=== PATIENT | female | born 1950 | race Caucasian/White ===

== ENCOUNTER 2020-01-23 22:35 | Inpatient (IN) | payer MEDICARE, OTHER ==
[~2020-01-23] VITALS: Ht 170.2 cm; Wt 70.1 kg
[2020-01-24] VITALS (7 sets, daily range): BP systolic 145–178; BP diastolic 68–92
--- NOTE | 2020-01-24 00:45 | NUR ---
ms terra initial notes Received a direct admit patient from [facility] accompanied by coal inspector . Pt is alert oriented x3 , Denies any pain or any discomfort. Re -oriented where she at . pt stated she just want to sleep because she's been in ER since yesterday afternoon. kept her warm and comfortable at all times. will continue monitoring. place call light at reach.
[2020-01-24] MEDS ORDERED: Z GUARD REMEDY 2 OZ OINT TP PRN (01:30)
[2020-01-24] MEDS ORDERED: MAGNESIUM HYDROXIDE 30 ML UDC PO PRN (01:30)
[2020-01-24] MEDS ORDERED: ONDANSETRON HCL/PF 4 MG/2 ML VIAL IVP PRN (01:30)
[2020-01-24] MEDS ORDERED: MAG HYDROX/AL HYDROX/SIMETH 30 ML UDC PO PRN (01:30)
[2020-01-24] MEDS ORDERED: ACETAMINOPHEN 325 MG TABLET PO PRN (01:30)
--- NOTE | 2020-01-24 07:08 | NUR ---
ms last repairer closing notes pt remains in bed resting with eyes closed but arouse to touch and to her name. She slept well after i admitted. Compression pump for VTE applied to both lower legs per protocol and as ordered. No signs of any discomfort or any distress noted. will endorse to am nurse for continuity of care. place call light at reach.
[2020-01-24 07:28] LABS: BASOPHILS % (AUTO) 0.3 % (0.0-2.0); EOSINOPHILS % (AUTO) 0.2 % (0.0-6.0); HEMATOCRIT 38 % (33-45); HEMOGLOBIN 13.4 g/dL (11.5-14.8); LYMPHOCYTES # (AUTO) 2.5 /CMM (0.8-4.8); LYMPHOCYTES % (AUTO) 25.5 % (20.0-44.0); MEAN CORPUSCULAR HGB CONC 36 g/dl (31.0-36.0); MEAN CORPUSCULAR VOLUME 89 fL (82-100); MONOCYTES # (AUTO) 0.4 /CMM (0.1-1.30); MONOCYTES % (AUTO) 4.5 % (2.0-12.0); NEUTROPHILS # (AUTO) 6.8 /CMM (1.8-8.9); NEUTROPHILS % (AUTO) 69.5 % (43.0-81.0); PLATELET COUNT (AUTO) 215 /CMM (150-450); RED BLOOD CELL COUNT(AUTO) 4.24 MIL/uL (4.0-5.2); WHITE BLOOD COUNT (AUTO) 9.8 K/uL (4.3-11.0)
--- NOTE | 2020-01-24 07:35 | NUR ---
MS RN OPENING NOTES RECEIVED PT IN BED, AWAKE, A/O X2-3, PT ADMITTED SHE'S A LITTLE CONFUSED. RN RE-ORIENTED PT. PT TOLERATING RA, WITH NO ACUTE RESPIRATORY DISTRESS NOTED. PT STATED ABDOMINAL PAIN AND VERBALIZED THAT SHE JUST HAD BM. PT DENIES ANY CONCERNS OR QUESTIONS AT THIS TIME. PIV LFA G22, FLUSHED WITH NS, INTACT AND OPERATIONAL. FC IN PLACE NOTED. PT KEPT COMFORTABLE. CALL LIGHT KEPT WITHIN REACH. PT'S BED IN LOWEST, LOCKED POSITION WITH SR X3. WILL CONTINUE PLAN OF CARE.
[2020-01-24 07:42] LABS: CALCIUM, SERUM 8.6 mg/dL (8.5-10.1); CREATININE 0.6 mg/dL (0.6-1.3)
[2020-01-24 07:47] LABS: POTASSIUM 2.6 mmol/L (3.5-5.1)
[2020-01-24] MEDS: HYDROCODONE/APAP 5/325MG 1 EACH TABLET PO PRN ×2 (09:23→21:25)
[2020-01-24] MEDS ORDERED: LORA-259 PO (10:24)
[2020-01-24] MEDS ORDERED: LEVO50TA8 PO (10:24)
[2020-01-24] MEDS ORDERED: BISA5TAB10 PO (10:24)
[2020-01-24] MEDS ORDERED: OXYB-58 PO (10:24)
[2020-01-24] MEDS ORDERED: MAGN400T26 PO (10:24)
[2020-01-24] MEDS ORDERED: OMEG1CAP40 PO (10:24)
[2020-01-24] MEDS ORDERED: TOPI100T PO (10:24)
[2020-01-24] MEDS ORDERED: CHOL500052 PO (10:24)
[2020-01-24] MEDS ORDERED: NITR1PAT80 TD (10:24)
[2020-01-24] MEDS ORDERED: LOSA50TA39 PO (10:24)
[2020-01-24] MEDS ORDERED: SERT50TA12 PO (10:24)
[2020-01-24] MEDS ORDERED: BUDE10.2 IH (10:24)
[2020-01-24] MEDS ORDERED: METH10TA2 PO (10:24)
[2020-01-24] MEDS ORDERED: ATOR10TA PO (10:24)
[2020-01-24] MEDS ORDERED: ALBU18HF2 IH (10:24)
[2020-01-24] MEDS ORDERED: CLOP75TA15 PO (10:24)
[2020-01-24] MEDS ORDERED: POTASSIUM CHLORIDE 20 MEQ TAB.PRT.SR PO ONE ×3 (11:00→18:00)
[2020-01-24] MEDS ORDERED: BISACODYL (5 MG) 5 MG TABLET.DR PO PRN (11:00)
[2020-01-24] MEDS: LEVOTHYROXINE SODIUM 50 MCG TABLET PO SCH (11:38)
[2020-01-24] MEDS: CLOPIDOGREL BISULFATE 75 MG TABLET PO SCH (11:38)
[2020-01-24] MEDS: METHADONE HCL 10 MG TABLET PO SCH ×2 (12:20→16:13)
[2020-01-24] MEDS ORDERED: ALBUTEROL FS 2.5 MG/0.5 ML VIAL.NEB NEB PRN (13:30)
[2020-01-24] MEDS: LOSARTAN POTASSIUM 50 MG TABLET PO SCH (16:13)
[2020-01-24] MEDS: TOPIRAMATE 100 MG TABLET PO SCH (16:13)
[2020-01-24] MEDS: ATORVASTATIN 10 MG TABLET PO SCH (17:24)
--- NOTE | 2020-01-24 18:33 | NUR ---
MS RN CLOSING NOTES PT REMAINS IN BED, AWAKE, A/O X2-3, WITH EPISODES OF CONFUSION. PT TOLERATING RA, WITH NO ACUTE RESPIRATORY DISTRESS NOTED. PIV LFA G22, FLUSHED WITH NS, INTACT AND OPERATIONAL. PT KEPT COMFORTABLE. ALL NEEDS AND CARE ATTENDED. CALL LIGHT KEPT WITHIN REACH. PT'S BED IN LOWEST, LOCKED POSITION WITH SR X3. WILL ENDORSE TO INCOMING NIGHT NURSE FOR TOMAS.
--- NOTE | 2020-01-24 19:11 | NUR ---
MS RN: RECEIVED PATIENT Patient in bed, awake. Feels tender in her lower abdomen, denies nausea no vomiting. On room air, tolerating well. Fall precaution maintained.
[2020-01-24] MEDS: CEFTRIAXONE 1 G in IV D5W 50 ML IV SCH (20:57)
--- NOTE | 2020-01-24 21:37 | NUR ---
MS RN: PAIN C/o lower abdominal pain 03/13, denies n/v. PRN [place] given, will reassess.
[2020-01-25] MEDS: ZOLPIDEM TARTRATE 5 MG TABLET PO PRN ×2 (00:27→22:36)
[2020-01-25] MEDS ORDERED: hydrALAZINE HCL 25 MG TABLET PO PRN (00:30)
[2020-01-25 00:32] VITALS: BP 167/74
--- NOTE | 2020-01-25 00:32 | NUR ---
MS RN: BP Elevated blood pressure 178/85 HR 59 with repeat check BP 167/74 HR 60 patient denies headache, no c/o chest pain, no N/V. Reports unable to sleep. Notified Dr. Davenport, order place. PRN Hydralazine given. Fall precaution maintained.
[2020-01-25 05:00] VITALS: BP 149/64
[2020-01-25 06:33] LABS: BASOPHILS % (AUTO) 0.3 % (0.0-2.0); EOSINOPHILS % (AUTO) 0.9 % (0.0-6.0); HEMATOCRIT 40 % (33-45); HEMOGLOBIN 13.9 g/dL (11.5-14.8); LYMPHOCYTES # (AUTO) 2.3 /CMM (0.8-4.8); LYMPHOCYTES % (AUTO) 25.1 % (20.0-44.0); MEAN CORPUSCULAR HGB CONC 35 g/dl (31.0-36.0); MEAN CORPUSCULAR VOLUME 90 fL (82-100); MONOCYTES # (AUTO) 0.5 /CMM (0.1-1.30); MONOCYTES % (AUTO) 5.3 % (2.0-12.0); NEUTROPHILS # (AUTO) 6.2 /CMM (1.8-8.9); NEUTROPHILS % (AUTO) 68.4 % (43.0-81.0); PLATELET COUNT (AUTO) 215 /CMM (150-450); RED BLOOD CELL COUNT(AUTO) 4.47 MIL/uL (4.0-5.2); WHITE BLOOD COUNT (AUTO) 9.1 K/uL (4.3-11.0)
[2020-01-25 06:46] LABS: CALCIUM, SERUM 8.7 mg/dL (8.5-10.1); CREATININE 0.6 mg/dL (0.6-1.3); MAGNESIUM 1.9 mg/dL (1.8-2.4); PHOSPHORUS 2.7 mg/dL (2.5-4.9); POTASSIUM 3.4 mmol/L (3.5-5.1)
[2020-01-25 06:50] LABS: THYROID STIMULATING HORMONE 2.534 uIU/mL (0.358-3.74)
--- NOTE | 2020-01-25 07:29 | NUR ---
MS RN OPENING NOTES RECEIVED PT IN BED, AWAKE, A/O X2-3. PT TOLERATING RA, WITH NO ACUTE RESPIRATORY DISTRESS NOTED. DURING ROUNDS PT LOOKING FOR ROUTINE PAIN MEDICATION. PT DENIES ANY CONCERNS OR QUESTIONS AT THIS TIME. PIV LFA G22, FLUSHED WITH NS, INTACT AND OPERATIONAL.DVT PUMPS PRESENT AND RUNNING. PT KEPT COMFORTABLE. CALL LIGHT KEPT WITHIN REACH. PT'S BED IN LOWEST, LOCKED POSITION WITH SR X3. WILL CONTINUE PLAN OF CARE.
--- NOTE | 2020-01-25 07:30 | NUR ---
MS RN: END OF SHIFT REPORT Patient in bed, awake, stable oxygenation on room air. IV antibiotic as scheduled, afebrile overnight. Abdomen pain relieved with PRN [place]. MRSA nares specimen obtained and send to lab. Both dorsal feet with redness, rash, awaiting wound consult. Fall, skin precaution maintained.
[2020-01-25 08:00] VITALS: BP 144/79
[2020-01-25] MEDS: TOPIRAMATE 100 MG TABLET PO SCH ×2 (08:12→16:49)
[2020-01-25] MEDS: MAGNESIUM OXIDE 400 MG TABLET PO SCH (08:12)
[2020-01-25] MEDS: OXYBUTYNIN CHLORIDE ER 5 MG TAB PO SCH (08:12)
[2020-01-25] MEDS: LEVOTHYROXINE SODIUM 50 MCG TABLET PO SCH (08:12)
[2020-01-25] MEDS: CLOPIDOGREL BISULFATE 75 MG TABLET PO SCH (08:13)
[2020-01-25] MEDS: CHOLECALCIFEROL 1,000 UNIT TABLET (VIT D3) PO SCH (08:13)
[2020-01-25] MEDS: SERTRALINE HCL 50 MG TABLET PO SCH (08:13)
[2020-01-25] MEDS: METHADONE HCL 10 MG TABLET PO SCH ×3 (08:13→16:49)
[2020-01-25] MEDS: FLUTICASONE/VILANTEROL 1 EACH BLST.W.DEV IH SCH (08:24)
[2020-01-25] MEDS: NITROGLYCERIN PATCH 0.2 MG/HR PATCH.TD24 TD SCH (08:24)
[2020-01-25] MEDS: LOSARTAN POTASSIUM 50 MG TABLET PO SCH ×2 (08:25→16:49)
[2020-01-25] MEDS ORDERED: POTASSIUM CHLORIDE 20 MEQ TAB.PRT.SR PO ONE (09:00)
--- NOTE | 2020-01-25 09:45 | NUR ---
MS RN NOTES PT LEFT THE UNIT FOR CT ABD/PELVIS.
--- NOTE | 2020-01-25 10:00 | NUR ---
MS RN NOTES PT JUST CAME BACK FROM CT. AWAITING FOR RESULTS. WILL CONTINUE TO MONITOR PT.
[2020-01-25 16:00] VITALS: BP 149/92
[2020-01-25] MEDS: ATORVASTATIN 10 MG TABLET PO SCH (18:27)
--- NOTE | 2020-01-25 19:05 | NUR ---
RN OPENING NOTES Received patient awake on bed, able to walk to the bathroom independently with steady gait. No complaints of pain or discomfort at this time. Kept on bed clean, dry and comfortable. On fall precautions. Will continue to monitor accordingly.
[2020-01-25] MEDS: CEFTRIAXONE 1 G in IV D5W 50 ML IV SCH (19:30)
[2020-01-25 20:00] VITALS: BP 156/87
[2020-01-25] MEDS: LORAZEPAM 1 MG TABLET PO PRN (20:42)
--- NOTE | 2020-01-25 20:43 | NUR ---
RN NOTES Patient noted easily frightened, holding hands, stuttering. Asked what is she anxious about, patient claimed she remembers genocide. Asked if she feels unsafe at this time, patient claimed she is just anxious of the thoughts of genocide. Offered diversional activities to patient and administer Ativan as ordered. Patient is thankful of the intervention. Will continue to monitor accordingly. Addendum: 01/25/20 at 2047 by ERICA CORMIER RN Pt noted uneasy, shaking. Assured patient's safety. Able to be calmed down.
--- NOTE | 2020-01-26 07:15 | NUR ---
RN CLOSING NOTES Patient awake on bed, on RA, no SB/respiratory distress noted. Due meds given as order, no ASE noted. Patient noted awake most of time within the shift. Noted ambulates to bathroom with steady gait. No complaints of dysuria noted. Able to reposition self independently. All nursing needs attended. Kept on bed clean, dry and comfortable. Endorsed.
--- NOTE | 2020-01-26 07:20 | NUR ---
MS RN OPENING NOTES RECEIVED PT IN BED, AWAKE, A/O X2-3, AMBULATING INSIDE THE ROOM. PT TOLERATING RA, WITH NO ACUTE RESPIRATORY DISTRESS NOTED. PT DENIES ANY PAIN OR DISCOMFORT. PT DENIES ANY CONCERNS OR QUESTIONS AT THIS TIME WELL. PIV LFA G22, FLUSHED WITH NS, INTACT AND OPERATIONAL. PT KEPT COMFORTABLE. CALL LIGHT KEPT WITHIN REACH. PT'S BED IN LOWEST, LOCKED POSITION WITH SR X3. WILL CONTINUE PLAN OF CARE.
[2020-01-26 08:00] VITALS: BP 130/71
[2020-01-26] MEDS: LEVOTHYROXINE SODIUM 50 MCG TABLET PO SCH (08:11)
[2020-01-26] MEDS: OXYBUTYNIN CHLORIDE ER 5 MG TAB PO SCH (08:12)
[2020-01-26] MEDS: LOSARTAN POTASSIUM 50 MG TABLET PO SCH (08:12)
[2020-01-26] MEDS: CHOLECALCIFEROL 1,000 UNIT TABLET (VIT D3) PO SCH (08:12)
[2020-01-26] MEDS: SERTRALINE HCL 50 MG TABLET PO SCH (08:12)
[2020-01-26] MEDS: MAGNESIUM OXIDE 400 MG TABLET PO SCH (08:12)
[2020-01-26] MEDS: TOPIRAMATE 100 MG TABLET PO SCH (08:12)
[2020-01-26] MEDS: METHADONE HCL 10 MG TABLET PO SCH ×2 (08:12→12:35)
[2020-01-26] MEDS: CLOPIDOGREL BISULFATE 75 MG TABLET PO SCH (08:12)
[2020-01-26 08:27] LABS: CALCIUM, SERUM 9.4 mg/dL (8.5-10.1); CREATININE 0.8 mg/dL (0.6-1.3); POTASSIUM 3.7 mmol/L (3.5-5.1)
[2020-01-26] MEDS: LORAZEPAM 1 MG TABLET PO PRN (09:14)
[2020-01-26 09:17] VITALS: BP 145/80
[2020-01-26] MEDS: NITROGLYCERIN PATCH 0.2 MG/HR PATCH.TD24 TD SCH (09:17)
[2020-01-26] MEDS: FLUTICASONE/VILANTEROL 1 EACH BLST.W.DEV IH SCH (09:17)
--- NOTE | 2020-01-26 09:30 | NUR ---
MS RN NOTES PT FOR DISCHARGE, CM INVOLVED. WILL CONTINUE TO MONITOR.
--- NOTE | 2020-01-26 15:49 | NUR ---
MS RN NOTES CALLED AND LEFT DETAILED MSG TO CAREGIVER/SHEELA REGARDING DISCHARGE TO ASSISTED LIVING.
--- NOTE | 2020-01-26 15:51 | NUR ---
MS ROCK DRILL OPERATOR NOTES PT AWAKE, A/O X2-3, AMBULATORY. PT TOLERATING RA, WITH NO ACUTE RESPIRATORY DISTRESS NOTED. PT DENIES ANY PAIN OR DISCOMFORT AT THE TIME OF DISCHARGE. PT GOING BACK TO INDEPENDENT/ASSISTED LIVING. PT ABLE TO REVIEW AND SIGN DISCHARGE INSTRUCTIONS AND INVENTORY LIST. ALL BELONGINGS WITH THE PATIENT. ANTIBIOTIC PRESCRIPTION GIVEN TO PATIENT. LEFT DETAILED MESSAGE TO SHEELA/CAREGIVER FOR DISCHARGE. ALL NEEDS AND CARE ATTENDED AND PROVIDED. PIV LFA G22, REMOVED AND APPLIED DRESSING. SKIN ASSESSED, PICTURES TAKEN AND FILED IN THE CHART. HOME MED NARCAN/SPRAY GAVE BACK TO PT. TRANSPORTED PT VIA GURNEY WITH 2EMTS ASSIST. VS STABLE AT THE TIME OF DISCHARGE, TAKEN BY COMPUTER PROGRAMMING MANAGER. PT LEFT THE UNIT AT 1550. HOSPITALIST/NN AND CHARGE NURSE/JACINDA AWARE OF DISCHARGE.
== END 2020-01-26 15:59 | DRG 689 ==
LOC: MED 01-24 00:31
PROVIDERS: ADMIT Nurse Practitioner Acute Care; ATTEND Nurse Practitioner Acute Care
DX: N39.0 Urinary tract infection, site not specified (principal); G93.41 Metabolic encephalopathy; E78.5 Hyperlipidemia, unspecified; E03.9 Hypothyroidism, unspecified; E87.6 Hypokalemia; F17.210 Nicotine dependence, cigarettes, uncomplicated; I10 Essential (primary) hypertension; F31.9 Bipolar disorder, unspecified; J44.9 Chronic obstructive pulmonary disease, unspecified; K52.9 Noninfective gastroenteritis and colitis, unspecified; B96.89 Other specified bacterial agents as the cause of diseases classified elsewhere
CPT/HCPCS: 36415; 71045-TC; 80048-TC; 80061-TC; 83735-TC; 84100-TC; 84443-TC; 85025-TC; 87081-TC; 97116-TC; 97530-TC; G0378; J0696; J7050; J7060